=== PATIENT | female | born 1975 | race Caucasian/White ===

== ENCOUNTER → 2017-03-20 | Outpatient (CLI) | payer SELFPAY ==
[~2017-03-20] MED LIST: DICYCLOMINE HCL20 MG PO; ELAVIL10 MG PO; INDERAL LA80 MG PO; PRILOSEC20 MG PO; TYLENOL ARTHRI650 MG PO
== END | disposition disaster alternative care site (69) ==
LOC: GRAD 14:58
DX: R31.9 Hematuria, unspecified (principal); R10.9 Unspecified abdominal pain

== ENCOUNTER → 2017-03-28 | Outpatient (CLI) | payer SELFPAY | END | disposition disaster alternative care site (69) | LOC: GRAD 08:58 | DX: R10.11 Right upper quadrant pain (principal) ==

== ENCOUNTER → 2017-04-05 | Day surgery (SDC) | payer SELFPAY ==
[~2017-04-05] VITALS: Ht 162.6 cm; Wt 66.3 kg
== END | disposition disaster alternative care site (69) ==
LOC: GPOC 04-04 14:00 → GEND 07:08 → GPOC 14:00
PROC: 0DB98ZX Excision of Duodenum, Via Natural or Artificial Opening Endoscopic, Diagnostic (ICD-10-PCS; principal; 2017-04-05)
PROC: 0DB68ZX Excision of Stomach, Via Natural or Artificial Opening Endoscopic, Diagnostic (ICD-10-PCS; 2017-04-05)
DX: K29.70 Gastritis, unspecified, without bleeding (principal); K31.89 Other diseases of stomach and duodenum; I49.02 Ventricular flutter; I10 Essential (primary) hypertension; G43.909 Migraine, unspecified, not intractable, without status migrainosus; F17.200 Nicotine dependence, unspecified, uncomplicated; Z98.890 Other specified postprocedural states; Z79.899 Other long term (current) drug therapy
CPT/HCPCS: J7030

== ENCOUNTER → 2017-04-09 | Outpatient (CLI) | payer SELFPAY | END | disposition disaster alternative care site (69) | LOC: GRAD 13:56 | DX: K31.89 Other diseases of stomach and duodenum (principal); K29.70 Gastritis, unspecified, without bleeding; K63.89 Other specified diseases of intestine; D18.03 Hemangioma of intra-abdominal structures ==

== ENCOUNTER → 2017-04-12 | Day surgery (SDC) | payer SELFPAY ==
[~2017-04-12] VITALS: Ht 162.6 cm; Wt 67.7 kg
== END | disposition disaster alternative care site (69) ==
LOC: GEND 06:58 → GOPP 07:00
PROC: 0D968ZZ Drainage of Stomach, Via Natural or Artificial Opening Endoscopic (ICD-10-PCS; principal; 2017-04-12)
DX: K31.89 Other diseases of stomach and duodenum (principal); K29.70 Gastritis, unspecified, without bleeding; R14.0 Abdominal distension (gaseous); I49.02 Ventricular flutter; I10 Essential (primary) hypertension; G43.909 Migraine, unspecified, not intractable, without status migrainosus; F17.200 Nicotine dependence, unspecified, uncomplicated; Z98.890 Other specified postprocedural states; Z79.899 Other long term (current) drug therapy
CPT/HCPCS: J2001; J7030

== ENCOUNTER → 2017-05-08 | Day surgery (SDC) | payer SELFPAY ==
[~2017-05-08] VITALS: Ht 165.1 cm; Wt 63.7 kg
== END | disposition disaster alternative care site (69) ==
LOC: GPOC 05-07 14:00 → GEND 08:09 → GPOC 14:00
PROC: 0DBP8ZX Excision of Rectum, Via Natural or Artificial Opening Endoscopic, Diagnostic (ICD-10-PCS; principal; 2017-05-08)
DX: K62.1 Rectal polyp (principal); I10 Essential (primary) hypertension; G43.909 Migraine, unspecified, not intractable, without status migrainosus; I49.02 Ventricular flutter; F17.210 Nicotine dependence, cigarettes, uncomplicated; Z79.899 Other long term (current) drug therapy; Z98.890 Other specified postprocedural states
CPT/HCPCS: J2001; J7030

== ENCOUNTER → 2017-05-31 | Outpatient (CLI) | payer SELFPAY | END | disposition disaster alternative care site (69) | LOC: GRAD 08:43 | DX: R10.9 Unspecified abdominal pain (principal); K63.89 Other specified diseases of intestine ==

== ENCOUNTER → 2017-07-27 | Day surgery (SDC) | payer SELFPAY ==
[~2017-07-27] VITALS: Ht 165.1 cm; Wt 67.9 kg
== END | disposition disaster alternative care site (69) ==
LOC: GPOC 07-24 09:00 → GEND 07:02 → GPOC 09:00
PROC: 0DB58ZX Excision of Esophagus, Via Natural or Artificial Opening Endoscopic, Diagnostic (ICD-10-PCS; principal; 2017-07-27)
DX: K22.8 Other specified diseases of esophagus (principal); F17.200 Nicotine dependence, unspecified, uncomplicated; Z98.890 Other specified postprocedural states
CPT/HCPCS: J2001; J2405; J7030